=== PATIENT | male | born 1975 | race Caucasian/White ===

== ENCOUNTER 2017-09-10 09:47 | Emergency (ER) | payer OTHER ==
[~2017-09-10] VITALS: Ht 188 cm; Wt 98.3 kg
[2017-09-10] MEDS ORDERED: PERCOCET 5/31 TABLET PO (12:30)
[2017-09-10 13:02] LABS: HEMATOCRIT 39.9 % (38.0-50.0); HEMOGLOBIN 13.7 G/DL (12.5-16.6); MCH 31.8 PG (29.0-34.0); MCHC 34.3 G/DL (30.0-36.0); MCV 92.6 FL (86-99); PLATELET COUNT 197 K/uL (156-360); RBC DIS.WIDTH-CV 12.7 % (11.8-14.6); RBC DIS.WIDTH-SD 43.8 % (39-53); RED BLOOD COUNT 4.31 M/uL (4.00-5.50); WHITE BLOOD COUNT 5.6 K/uL (4.1-10.2)
[2017-09-10 13:16] LABS: CHLORIDE 105 mEq/L (99-109); POTASSIUM 4.5 mEq/L (3.7-5.4); SODIUM 138 mEq/L (136-147)
[2017-09-10 13:18] LABS: GLUCOSE 93 mg/dL (70-99)
[2017-09-10 13:21] LABS: CREATININE 0.8 mg/dL (0.6-1.3); GFR ESTIMATE (CALCULATED) > 59 mL/min/ (58.99-99999)
[2017-09-10 13:22] LABS: UREA NITROGEN (BUN) 8 mg/dL (9-23)
[2017-09-10] MEDS ORDERED: BACTRIM,SEPT1 TABLET PO (13:35)
[2017-09-10 14:01] VITALS: BP 158/98
== END 2017-09-10 14:02 | disposition home or self-care (01) ==
LOC: EME 09:47
PROVIDERS: Nurse Practitioner Family
DX: L72.3 Sebaceous cyst (principal); R10.31 Right lower quadrant pain; K57.30 Diverticulosis of large intestine without perforation or abscess without bleeding; N20.0 Calculus of kidney
CPT/HCPCS: 74177; 76882; 80048; 85027; 99281; 99284; J7030